=== PATIENT | male | born 1970 | race Caucasian/White ===

== ENCOUNTER 2023-05-29 11:51 | Emergency (ER) | payer BC, SELFPAY ==
[2023-05-29 11:55] VITALS: BP 121/89
--- NOTE | 2023-05-29 12:23 | ED.GENMED ---
History of Present Illness
General
Chief Complaint: Allergic Reaction
Source: patient and spouse
Time Seen by Provider: 05/29/23 12:14
Travel History
Have you had any contact with someone who has COVID-19?: No
Do you have any symptoms of coronavirus? Fever > 100 degrees, chills, cough, shortness of breath, sore throat, loss of taste or smell, muscle aches, or headache?: No
History of Present Illness
History of Present Illness:
52-year-old male presenting to the emergency department for evaluation of suspected allergic reaction noting he was eating breakfast which consisted of eggs when he started to feel flushed and then proceeded with diffuse erythema, swelling of the
face and sensation of throat closing. Patient states that when he has eaten eggs in the past he will sometimes feel a reflux sensation so he took 1 dose of his Protonix but this did not help his symptoms so he then took 125 mg Benadryl. Patient
still notes continued symptoms prompting him to come to the ER for further evaluation. Patient denies any respiratory difficulty, drooling, spitting, nausea, vomiting, chest pain or shortness of breath. Denies any history of anaphylactic reaction
in the past. No other concerns at this time
Past History
Past History
ED Past Medical History: HTN and Other (PE)
ED Past Surgical History: Orthopedic
Social History
Tobacco: Non-smoker
Alcohol: Occasional
Drug: None
Personal:
Living: with family
Employment: Employed
Review of Systems
Review of Systems
All Other Systems: ROS reviewed and negative except as documented in HPI and ROS
Phy Exam
Physical Exam
Physical Exam:
GENERAL: Alert , in no apparent distress, flushed
EYE: conjunctiva clear
NECK: Supple
ENT: o/p clr, mmm. Uvula midline, airway patent, no drooling, no spitting, no stridor
CARDIAC: Regular rate and rhythm
LUNGS: Clear breath sounds bilaterally, no acute respiratory distress, no wheezes/rales/rhonchi
NEUROLOGICAL: Alert and oriented
SKIN: Warm and dry, skin intact. Diffuse hives to the face/neck/chest/back
MUSCULOSKELETAL: well perfused.
PSYCH: Normal and appropriate interaction.
Scores
Heart Failure Risk
Heart Failure Risk Score: Not Applicable
Heart Score for Chest Pain Patients
STEMI patient?: Not applicable
Withdrawal Assessment of Alcohol
Withdrawal Assessment Completed?: Not applicable
Course
Orders/Labs/Results
Orders:
Orders
05/29/23 12:21
IV Insert/Care/Rem.- Treatment PRN
Diphenhydramine [Benadryl] 25 mg IV NOW STA
Famotidine [Pepcid] 20 mg IV NOW STA
MethylPREDNISolone PF [Solu-Medrol Pf] 60 mg IV NOW STA
05/29/23 12:26
Sterile Water [Sterile Water For Injection] 10 ml .ROUTE .STK-MED ONE
Vital Signs
Initial and Last Documented VS:
Initial Vital Signs
Temp Pulse Resp BP Pulse Ox
97.8 F 90 20 121/89 99
05/29/23 11:55 05/29/23 11:55 05/29/23 11:55 05/29/23 11:55 05/29/23 11:55
Last Documented Vital Signs
Temp Pulse Resp BP Pulse Ox
97.8 F 68 15 136/84 96
05/29/23 14:32 05/29/23 14:32 05/29/23 14:32 05/29/23 14:32 05/29/23 14:32
MDM/Problems Addressed
Differential Diagnosis Includes:
Food allergy, contact dermatitis, currently no concerns for anaphylaxis
MDM/Problems Addressed:
52-year-old male present emergency department for evaluation after eating eggs and starting to feel as if you are having an allergic reaction. Arrives to the emergency department still flushed with sensation of throat closing and swelling. No
observable signs of anaphylaxis or airway compromise. Patient is flushed however speaking full sentences and in no acute respiratory distress. Will treat with Solu-Medrol, Pepcid and additional 25 mg Benadryl IV. Low threshold to dose epinephrine
if symptoms do not improve.
*Pulse Oximetry
Patient hypoxic: no
*Critical Care Note
Total Time (30-74mins, 75-104mins- exclusive of procedures): Not Applicable
Comment
Comment:
1:27 PM: On reevaluation patient's flushed appearance is fully resolved. He still notes very slight pruritus to the bilateral digits but otherwise continues without any respiratory difficulties. Will continue to monitor ultimate plan to be
discharged home pending no further exacerbations of allergic reaction.
Patient Management
Escalation/DeEscalation of care consider admission/obs:
On multiple reevaluations patient's flush appearance remains resolved. He does still note some intermittent pruritus to the hands and feet. No signs of respiratory distress or airway compromise. Patient is otherwise stable for discharge home.
Prescription for prednisone and EpiPen sent to pharmacy. Patient is aware of return precautions emergency department but otherwise stable for discharge home and outpatient management with primary care as well as may need follow-up with seat scooper machine
for further testing.
ED Attending Note
-
Portions of this chart may have been created with voice recognition software.� Occasional wrong word or��sound alike� substitutions may have occurred due to the inherent limitations of voice recognition software.
Discharge Plan
Departure
Patient Disposition: Home (Routine Discharge)
Date of Disposition: 05/29/23
Time of Disposition: 14:06
Patient with high blood pressure during this ER visit?: No
Discharge Problem:
Hives
Instructions: Hives (DC)
Prescriptions:
New
epinephrine [EpiPen] 0.3 mg/0.3 mL auto-injector
0.3 mg IM ONCE PRN (Reason: anaphylaxis) Qty: 2 0RF
famotidine [Pepcid] 20 mg tablet
20 mg PO BID PRN (Reason: allergy symptoms) Qty: 15 0RF
Referrals:
Stevie Cole, [Family Provider] -
Interventions
Interventions:
*Risk Screen - Suicide Last Done: 05/29/23 12:38
*General Assessment Last Done: 05/29/23 12:39
*Neglect/Abuse Screening Last Done: 05/29/23 12:38
ED- Fall Risk Assessment Last Done: 05/29/23 14:32
*ED COVID-19 Vaccine History Last Done: 05/29/23 11:55
*Nursing Disposition Last Done: 05/29/23 14:32
ED- Cardiac Assessment Last Done: 05/29/23 12:39
ED- Pulmonary Assessment Last Done: 05/29/23 12:39
ED-Skin Assessment Last Done: 05/29/23 12:39
Discharge Date and Time
Discharge Date/Time: 05/29/23 15:03
Print Language: BOLIVIAN
[2023-05-29] MEDS: SOLU-MEDROL PF 60 MG IV (12:31)
[2023-05-29] MEDS: BENADRYL 25 MG IV (12:31)
[2023-05-29] MEDS: PEPCID 20 MG IV (12:31)
[2023-05-29 12:37] VITALS: BP 127/98
[2023-05-29 12:38] VITALS: BMI 31.5
[2023-05-29 13:00] VITALS: BP 110/77
[2023-05-29 14:00] VITALS: BP 126/90
[2023-05-29 14:27] VITALS: BP 136/84
[2023-05-29 14:32] VITALS: BP 136/84
== END 2023-05-29 15:03 | disposition home or self-care (01) ==
LOC: EMR 11:51
PROVIDERS: EMERGENCY PHYSICIAN Emergency Medicine; FAMILY PHYSICIAN Internal Medicine
DX: L50.9 Urticaria, unspecified (principal); R22.0 Localized swelling, mass and lump, head; R09.89 Other specified symptoms and signs involving the circulatory and respiratory systems; L29.9 Pruritus, unspecified; R23.2 Flushing; I10 Essential (primary) hypertension; Z86.711 Personal history of pulmonary embolism
CPT/HCPCS: 99284; 96374; 96375 ×2

== ENCOUNTER 2024-06-29 21:53 | Emergency (ER) | payer BC, SELFPAY ==
[2024-06-29 21:57] VITALS: BP 129/90
[2024-06-29 22:13] VITALS: BMI 29.8
[2024-06-29 23:19] LABS: Urine Albumin 3+ (Neg - Trace); Urine Bilirubin Negative (Negative); Urine Character Slightly Cloudy (Clear); Urine Color Amber; Urine Glucose Negative (Negative); Urine Ketone 1+ (Negative); Urine Leukocyte 2+ (Negative); Urine Nitrite Positive (Negative); Urine Occult Blood 4+ (Negative); Urine Specific Gravity 1.025 (<1.030); Urine Urobilinogen 1+ (Neg - 1+)
[2024-06-29 23:20] LABS: % Basophils 0.3 % (0-2); % Eosinophils 1.4 % (0-6); % Immature Granulocytes 0.3 % (0-0.5); % Lymphocytes 22.5 % (20.5-51.1); % Neutrophils 65.5 % (42.2-75.2); Absolute Eosinophils 0.1 10^3/uL (0-0.7); Absolute Lymphocytes 1.8 10^3/uL (1.2-3.4); Absolute Monocytes 0.8 10^3/uL (0.1-0.6); Absolute Neutrophils 5.2 10^3/uL (1.4-6.5); Hemoglobin 15.4 g/dL (13.0-18.0); Mean Corp Hgb Conc. 36.7 g/dL (33.0-37.0); Mean Corpuscular Hgb 31.1 pg (27.0-31.0); Mean Corpuscular Volume 84.8 fL (80.0-94.0); Mean Platelet Volume 9.2 fL (7.4-10.4); Nucleated Red Blood Cells % 0 % (-); Platelet Count 230 10^3/uL (130-400); Red Blood Cell Count 4.95 10^6/uL (4.70-6.10); Red Cell Dist. Width 13.3 % (11.5-14.5)
[2024-06-29 23:36] LABS: ALT (SGPT) 29 U/L (0-50); AST (SGOT) 28 U/L (17-59); Albumin 4.6 g/dl (3.5-5.0); Alkaline Phosphatase 49 U/L (38-126); Blood Urea Nitrogen 16 mg/dl (9-20); Calcium 9.4 mg/dl (8.4-10.2); Carbon Dioxide 29 mmol/L (22-30); Chloride 108 mmol/L (98-107); Estimated Creatinine Clearance 85 ml/min; Glucose 86 mg/dl (70-99); Lipase 118 U/L (23-300); Potassium 3.7 mmol/L (3.5-5.1); Sodium 143 mmol/L (135-145); Total Bilirubin 0.9 mg/dl (0.2-1.3); Total Protein 7.2 g/dl (6.3-8.2); eGFR > 60.00
[2024-06-29 23:40] LABS: Urine Amorphous Seen; Urine Squamous Cell >30 /LPF (Few)
[2024-06-29 23:41] LABS: Urine Red Blood Cell >100 /HPF (0-2)
[2024-06-29 23:42] LABS: Urine Mucus Moderate
[2024-06-29 23:43] LABS: Urine Bacteria Many (Negative)
[2024-06-29 23:45] LABS: Urine Yeast Many (Negative)
[2024-06-30 02:14] VITALS: BP 130/94
[2024-06-30] MEDS: NSS 1000 IV (02:30)
[2024-06-30] MEDS: MORPHINE SULFATE 4 MG IV (02:31)
[2024-06-30 03:00] VITALS: BP 120/83
--- NOTE | 2024-06-30 03:06 | ED.GENMED ---
History of Present Illness
General
Chief Complaint: Abdominal Pain
Time Seen by Provider: 06/30/24 01:47
History of Present Illness
History of Present Illness:
53-year-old male with prior history of PE on Eliquis presenting to the emergency department for left-sided abdominal pain and flank pain. He reports symptoms started yesterday evening. Notes that he initially had an episode of hematuria which then
resolved, however is now reporting some burning with urination. Denies any history of kidney stones. He took Tylenol prior to arrival for pain with mild relief of symptoms. Denies vomiting or changes in stool. Denies surgical history to the
abdomen. Denies chest pain or difficulty breathing. Denies any fever. Denies additional acute medical complaints
Past History
Past History
ED Past Medical History: HTN and Other (PE)
ED Past Surgical History: Orthopedic
Social History
Tobacco: Non-smoker
Alcohol: Occasional
Drug: None
Personal:
Living: with family
Employment: Employed
Phy Exam
Physical Exam
Physical Exam:
General: Well-appearing, no clinical signs of dehydration, nontoxic and in no acute distress
HEENT: protecting airway
Neck: appears supple
CV: Normal heart rate, regular rhythm
Resp: No accessory muscle use, no increased work of breathing
Abd: Soft and non-distended, mild tenderness to the left lower quadrant and CVA
Extremities: No deformities, no swelling
Neuro: alert, no focal neurologic deficit
: deferred
Rectal: deferred
Psych: Normal affect
Skin: Intact
Course
Orders/Labs/Results
Orders:
Orders
06/29/24 22:14
IV Insert/Care/Rem.- Treatment PRN
Straight cath- Treatment ONCE
06/29/24 23:05
Urinalysis Reflex To Culture Urgent
Date Specimen was Collected: 06/29/24
Time Specimen was Collected: 22:14
Urine Microscopic Reflex Cult Urgent
Urine Culture Urgent
MELANIE Source: U
Specimen Description:
Date Specimen was Collected: 06/29/24
Time Specimen was Collected: 22:14
06/29/24 23:14
Complete Blood Count/With Diff Urgent
Comprehensive Metabolic Panel Urgent
Lipase Urgent
06/30/24 00:01
CT Abd/pelvis Wo Iv Cont Urgent
Reason For Exam: Abd pain
06/30/24 02:13
0.9% Sodium Chloride 1000 ml [Nss] 1,000 ml IV BOLUS
Morphine Sulfate 4 mg IV NOW STA
06/30/24 02:59
CefTRIAXone [Rocephin] 1,000 mg IV NOW STA
Tamsulosin [Flomax] 0.4 mg PO NOW STA
Abnormal Lab Results
06/29/24 06/29/24
23:05 23:14
MCH 31.1 H pg
(27.0-31.0)
Absolute Monos (auto) 0.8 H 10^3/uL
(0.1-0.6)
Monocytes % 10.0 H %
(1.7-9.3)
Chloride 108 H mmol/L
(98-107)
Urine Ketones 1+ A
(Negative)
Ur Occult Blood Reflex 4+ A
(Negative)
Urine Nitrite (Reflex) Positive A
(Negative)
Leukocyte Esterase Rfl 2+ A
(Negative)
Urine RBC >100 A /HPF
(0-2)
Urine WBC (Reflex) 11-15 A /HPF
(0-5)
Urine Bacteria (Reflex) Many A
(Negative)
Urine Yeast Many A
(Negative)
Urine Albumin (Reflex) 3+ A
(Neg - Trace)
06/29/24 23:14
06/29/24 23:14
Vital Signs
Initial and Last Documented VS:
Initial Vital Signs
Temp Pulse Resp BP Pulse Ox
97.7 F 89 20 129/90 99
06/29/24 21:57 06/29/24 21:57 06/29/24 21:57 06/29/24 21:57 06/29/24 21:57
Last Documented Vital Signs
Temp Pulse Resp BP Pulse Ox
97.7 F 89 20 120/83 97
06/29/24 21:57 06/29/24 21:57 06/29/24 21:57 06/30/24 03:00 06/30/24 03:00
MDM/Problems Addressed
MDM/Problems Addressed:
53-year-old male with history of PE on Eliquis presenting to the emergency department for left-sided abdominal pain and flank pain. Vital signs are normal.
On exam patient is resting comfortably, no acute distress or discomfort. He is afebrile, nontoxic. Patient had laboratory analysis obtained prior to my assessment. No leukocytosis, normal renal function. Urine however does show signs of
infection with positive nitrites and leukocytes. Symptom presentation and physical exam appears most consistent with kidney infection versus kidney stone. IV fluids administered as well as morphine for pain. Pending CT imaging.
03:00 - CT shows a 3 to 4 mm stone in the left UVJ with some mild hydronephrosis, hydroureter and perinephric stranding. In the setting of UTI, infected stone is a consideration, however patient is notably well-appearing, no fever, no leukocytosis.
Did discuss with urology, feel reasonable for discharge home given his clinical stability, however recommending Flomax, antibiotics, pain control. Did discuss results with patient and offered admission for antibiotics and pain control versus
outpatient expectant management with antibiotics. Patient would prefer to go home. Patient actually has an appointment with a urologist on Tuesday, sees a urologist with [facility] urology for BPH. Advised maintaining this appointment. However,
did discuss with patient and partner at bedside. Explained that if at any point he is having worsening pain or development of fever, needs to immediately return to the hospital. Patient verbalized understanding.
*Critical Care Note
Total Time (30-74mins, 75-104mins- exclusive of procedures): Not Applicable
ED Attending Note
-
Portions of this chart may have been created with voice recognition software.� Occasional wrong word or��sound alike� substitutions may have occurred due to the inherent limitations of voice recognition software.
Discharge Plan
Departure
Patient Disposition: Home (Routine Discharge)
Date of Disposition: 06/30/24
Time of Disposition: 03:04
Patient with high blood pressure during this ER visit?: No
Condition: Good
Discharge Problem:
Kidney stone on left side, Urinary tract infection
Instructions: Kidney Stones (DC), Urinary Tract Infection - Men
Prescriptions:
New
tamsulosin [Flomax] 0.4 mg capsule
0.4 mg PO DAILY 7 Days Qty: 7 0RF
cephalexin 500 mg capsule
500 mg PO Q8H 7 Days Qty: 21 0RF
oxycodone-acetaminophen [Endocet] 5-325 mg tablet
1 tab PO Q8H PRN (Reason: Pain) Qty: 9 0RF
No Action
epinephrine [EpiPen] 0.3 mg/0.3 mL auto-injector
0.3 mg IM ONCE PRN (Reason: anaphylaxis) Qty: 2 0RF
amlodipine 5 mg Tablet
5 mg PO DAILY
montelukast [Singulair] 10 mg Tablet
10 mg PO DAILY
eszopiclone [Lunesta] 3 mg Tablet
3 mg PO HS
Eliquis 5 mg Tablet
5 mg PO DAILY
Singulair
Referrals:
UNKNOWN,NO INTERVIEW [Family Provider] -
Activity Restrictions/Additional Instructions:
You were seen in the emergency department for left-sided abdominal pain and flank pain
You were found to have a kidney stone with some inflammation to your kidney as well as signs of a urinary tract infection. You had a reassuring laboratory analysis. Your kidney stone is 3 to 4 mm, which will likely pass on its own. You were
prescribed Flomax to help you pass the kidney stone. You were also prescribed antibiotic given evidence of urinary tract infection. Please strain your urine as directed. Please follow-up with your urologist as scheduled.
Please follow-up closely with your primary care physician.
Return to the emergency department for any worsening of your symptoms including any increase in pain or development of fever, any increased blood in your urine, or any development of chest pain, difficulty breathing, abdominal pain with persistent
vomiting and inability to tolerate food or liquid by mouth (concern for dehydration), weakness, headache or confusion, or any additional symptoms that are concerning to you.
Thank you for choosing [facility].
Interventions
Interventions:
*Risk Screen - Suicide Last Done: 06/29/24 21:57
*General Assessment Last Done: 06/30/24 02:19
*Neglect/Abuse Screening Last Done: 06/29/24 21:57
*ED- Fall Risk Assessment Last Done: 06/30/24 02:19
*ED COVID-19 Vaccine History Last Done: 06/30/24 02:19
HP-Zfxoba-Pfvnhsfgor Assessment Last Done: 06/30/24 02:20
Discharge Date and Time
Print Language: SWEDISH
[2024-06-30] MEDS: FLOMAX 0.4 MG PO (03:14)
[2024-06-30] MEDS: ROCEPHIN 1000 MG IV (03:14)
== END 2024-06-30 03:50 | disposition home or self-care (01) ==
LOC: EMR 21:53
PROVIDERS: EMERGENCY PHYSICIAN Student in an Organized Health Care Education/Training Program
DX: N20.0 Calculus of kidney (principal); N39.0 Urinary tract infection, site not specified; I10 Essential (primary) hypertension; N40.0 Benign prostatic hyperplasia without lower urinary tract symptoms; Z79.01 Long term (current) use of anticoagulants; Z86.711 Personal history of pulmonary embolism; Z90.49 Acquired absence of other specified parts of digestive tract
CPT/HCPCS: 99284; 96374; 96375; 96361; 74176; 80053; 81003; 81015; 83690; 85025; 87086